=== PATIENT | male | born 1980 | race Caucasian/White ===

== ENCOUNTER → 2023-09-07 08:26 | Outpatient (CLI) | payer OTHER ==
[~2023-09-07 08:26] MED LIST: ZYRTEC10 MG PO
[2023-09-07 09:54] LABS: HEMATOCRIT 40.2 % (39.0-48.0); HEMOGLOBIN 13.5 g/dL (13-16.00); MEAN CELL VOLUME 78.2 fL (80.0-100.00); MEAN CORPUSCULAR HEMOGLOBIN 26.2 pg (27.00-32.0); MEAN CORPUSCULAR HGB CONC 33.5 g/dl (32.0-36.0); PLATELET COUNT 343 K/uL (150-450); RED BLOOD COUNT 5.14 M/uL (4.00-6.00); RED CELL DISTRIBUTION WIDTH 15.8 % (11.5-14.5)
[2023-09-07 10:08] LABS: PH,URINE 5.5 (5.0-8.0); URINE APPEARANCE Clear; URINE BILIRRUBIN Negative (NEGATIVE); URINE BLOOD Negative; URINE COLOR Yellow; URINE LEUKOCYTE Negative; URINE NITRATE Negative; URINE PROTEIN Negative (NEGATIVE); URINE UROBILINOGEN 0.2 E.U./dl
[2023-09-07 10:13] LABS: URINE BACTERIA 6.2 uL (0.0-1933)
[2023-09-07 10:36] LABS: INR 0.96; PARTIAL THROMBOPLASTIN TIME 27.9 SECONDS (22.0-34.0); PROTHROMBIN TIME 10.1 SECONDS (9.0-11.5)
[2023-09-07 10:46] LABS: ALBUMIN 3.9 gm/dL (3.4-5.0); BILIRUBIN TOTAL 0.4 mg/dL (0.3-1.2); CALCIUM 9.2 mg/dL (8.5-10.1); CREATININE SERUM 1.02 mg/dL (0.70-1.30); GFR 79.34; GLOBULINA 3.6 G/DL (2.4-3.5); POTASSIUM 5.21 mEq/L (3.5-5.1); TOTAL PROTEIN 7.5 gm/dL (6.4-8.2)
[2023-09-07 11:15] LABS: URINE EPITHELIAL CELLS 1.2 uL (0.0-38.8); URINE GLUCOSE >=1000 MG/DL (NEGATIVE); URINE RBC 0.5 uL (0.0-20.8)
== END | disposition home or self-care (01) ==
LOC: LAB 08:26
PROVIDERS: ATTEND Surgery
DX: K64.2 Third degree hemorrhoids (principal); K62.89 Other specified diseases of anus and rectum; K62.5 Hemorrhage of anus and rectum

== ENCOUNTER 2023-09-19 09:15 | Day surgery (SDC) | payer OTHER ==
[~2023-09-19 09:15] MED LIST changes: +ALLERGY RELIE15.8 ML NASAL; +JARDIANCE25 MG PO
[2023-09-19] MEDS ORDERED: OXYC1TAB9 PO (17:49)
== END 2023-09-19 22:35 | disposition home or self-care (01) ==
LOC: CIR.AMB 09:15
PROVIDERS: ATTEND Surgery
DX: K64.2 Third degree hemorrhoids (principal); K64.8 Other hemorrhoids; K64.4 Residual hemorrhoidal skin tags; K62.89 Other specified diseases of anus and rectum; K62.5 Hemorrhage of anus and rectum; Z20.822 Contact with and (suspected) exposure to COVID-19; Z88.0 Allergy status to penicillin